=== PATIENT | female | born 1975 | race Caucasian/White ===

== ENCOUNTER 2017-11-01 16:55 | Emergency (ER) | payer SELFPAY ==
[~2017-11-01] VITALS: Ht 180.3 cm; Wt 102.3 kg
[2017-11-01 17:29] VITALS: Ht 180.3 cm; Wt 102.3 kg
[2017-11-01] MEDS ORDERED: SYNTHROID150 MCG PO (17:31)
[2017-11-01] MEDS ORDERED: CYTOMEL25 MCG PO (17:31)
[2017-11-01] MEDS ORDERED: ALDACTONE50 MG PO (17:31)
[2017-11-01] MEDS ORDERED: HYDROCODON-ACE1 EAC7 PO (21:01)
[2017-11-01 21:17] VITALS: BP 132/80
== END 2017-11-01 21:18 | disposition home or self-care (01) ==
LOC: D.ER 16:55
DX: S82.831A Other fracture of upper and lower end of right fibula, initial encounter for closed fracture (principal); X50.1XXA Overexertion from prolonged static or awkward postures, initial encounter; Y93.01 Activity, walking, marching and hiking; Y92.89 Other specified places as the place of occurrence of the external cause